=== PATIENT | male | born 1980 | race Two or more races ===

== ENCOUNTER 2022-10-05 15:41 | Emergency (ER) | payer SELFPAY ==
[2022-10-05 15:49] VITALS: BP 133/81; PULSE 103; RESP 18; TEMP 36.3; O2SAT 99; BMI 27.5
--- NOTE | 2022-10-05 15:49 | ED_ITS ---
HPI - General Adult General Chief complaint: General Medical <Neelam Caldwell CNP - Last Filed: 10/05/22 16:44> Stated complaint: High blood pressure <Neelam Caldwell CNP - Last Filed: 10/05/22 16:44> Time Seen by Provider: 10/05/22 17:13 <Neelam Caldwell CNP - Last Filed: 10/05/22 16:44> Source: patient <TODD Bragg Last Filed: 10/05/22 19:04> Mode of arrival: ambulatory <TODD Bragg Last Filed: 10/05/22 19:04> Limitations: no limitations <TODD Bragg Last Filed: 10/05/22 19:04> History of Present Illness HPI narrative: This is a 42-year-old male presenting to the emergency department requesting a medication refill on his blood pressure medication Procardia XL he takes 30 mg daily, patient tells me he recently got here from [place] he is here for a little while due to a family emergency, he tells me prior to him coming to [place] he was hospitalized with rhabdo, acute kidney injury with elevated creatinine ( reported Cr of 13 to this KAYLENE) than the expressed that it was very important that he get his blood pressure under control. He tells me he has ran out of medications. He is requesting a medication refill. He tells me he thinks that his blood pressures have been high, he tells me when he took it at home it was systolic pressure in the 170s. He denies any medical complaints at this time. He tells me he is afraid if he does not take his medications he will get dizzy and not feel well. However at this present moment patient without medical complaints denying chest pain, shortness of breath, vision changes, dizziness, headache, nausea, vomiting, abdominal pain. NIH stroke scale 0. <TODD Bragg Last Filed: 10/05/22 19:04> Related Data Home medications: Previous Rx's Medication Instructions Recorded nifedipine 30 mg tablet,extended 30 mg PO DAILY #30 tabs 10/05/22 release 24 hr (Procardia XL) <Neelam Caldwell CNP - Last Filed: 10/05/22 16:44> Allergies/adverse reactions: Allergies Allergy/AdvReac Type Severity Reaction Status Date / Time No Known Allergies Allergy Verified 10/05/22 16:00 <Neelam Caldwell CNP - Last Filed: 10/05/22 16:44> Review of Systems Review of Systems: Constitutional : No Weight loss, No Fever, No Chills, No Fatigue, No Malaise ENT/Mouth : No sore throat, No Rhinorrhea Eyes: No Eye Pain, No Swelling, No Redness Cardiovascular : No Chest Pain, No SOB, No Dyspnea on Exertion, No Orthopnea, No Edema, No Palpitations Respiratory : No Cough, No Sputum, No Wheezing Gastrointestinal : No Nausea, No Vomiting, No Diarrhea, No Constipation, No abdominal Pain, No Hematochezia, No Melena Genitourinary : No Dysuria, No Urinary Frequency, No Hematuria, Musculoskeletal : No joint pain, No Myalgias, No Joint Swelling Skin : No Skin Lesions, No rash Neuro : No Weakness, No Numbness, No Dizziness, No Headache Psych : No Anxiety/Panic, No Depression All other systems reviewed and are negative <TODD Bragg - Last File d: 10/05/22 19:04> Yes all other systems are reviewed and are negative <TODD Bragg - Last Filed: 10/05/22 19:04> [facility] Past Medical History Attestation statement: The following information was validated with the patient. <TODD Bragg - Last Filed: 10/05/22 19:04> Source: old records reviewed and nursing notes reviewed <TODD Bragg - Last Filed: 10/05/22 19:04> Social History Social History: Social History Advance Directives: No Advance Directives Information Provided: No <Neelam Caldwell CNP - Last Filed: 10/05/22 16:44> Physical Exam ED Vital Signs: Vital Signs - 24 hr 10/05/22 15:49 10/05/22 17:43 Temperature 97.4 F Pulse Rate 103 H 92 Respiratory Rate 18 18 Blood Pressure 133/81 119/80 Pulse Oximetry 99 98 Oxygen Delivery Method Room Air Room Air BMI result Body Mass Index 27.5 <Neelam Marie RHYS Caldwell - Last Filed: 10/05/22 16:44> Vital Signs - 24 hr 10/05/22 15:49 10/05/22 17:43 Temperature 97.4 F Pulse Rate 103 H 92 Respiratory Rate 18 18 Blood Pressure 133/81 119/80 Pulse Oximetry 99 98 Oxygen Delivery Method Room Air Room Air BMI result Body Mass Index 27.5 Vital signs stable <TODD Bragg - Last Filed: 10/05/22 19:04> Appearance: Alert.? Oriented X3.? No acute distress.? Head: Normocephalic, atraumatic, no step-offs or deformities Eyes: Pupils equal, round and reactive to light.? CVS: Normal heart rate and rhythm.? Pulses normal.? Respiratory: No respiratory distress.? Breath sounds normal.? Abdomen: Soft and nontender.? Skin: Skin warm and dry.? Normal skin color.? Normal skin turgor.? Extremities: No lower extremity edema.? No calf ttp. 5/5 strength to bilateral upper and lower extremities Back: No midline tenderness, no C-spine tenderness, full range of motion, no CVA tenderness bilaterally Neuro: Oriented X 3.? No motor deficit.? No sensory deficit. CN 2-12 intact . Ambulating with steady gait normal coordination. Normal rapid alternating movements. Normal [id number], [id number]. <TODD Bragg - Last Filed: 10/05/22 19:04> Course Course Course Narrative: This is an RME: Additional HPI, ROS, PE not included below will be deferred to primary provider. 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 Today was 154/138 with automated wrist cuff. Reports that he checks it daily, usually 130-140's SBP, confirms 138 DBP, has experiencing d izziness at this time. Reports today he ran out of his HTN medication, nifedipine XL 30 mg, states he has a problem with my kidney , reporting a story concerning for rhabdo, with last known creatinine 8, no further follow-up. Moved here from [place] 3 weeks ago, does not have a PCP here. Denies chest pain, shortness of breath, n/v, and pain, inability to urinate, abnormal colored urine. Plan: Labs, urinalysis, EKG <Neelam Caldwell CNP - Last Filed: 10/05/22 16:44> Reevaluation(s) Reevaluation #1: CBC with slight leukocytosis 12.9 patient without medical complaints, no baseline to compare with however infection is not suspected at this time. Chemistry with no acute findings requiring intervention. Normal BUN and creatinine. Slightly elevated transaminases and alk-phos however no abdominal tenderness on palpation. Troponin negative, EKG nonischemic unlikely that this is ACS. Urine negative. Again patient reassures me that he is not having any medical complaints, no chest pain, shortness of breath, dizziness, headache or vision changes. Patient's neuro remains nonfocal. At this time patient will be discharged home with prompt follow-up with his primary care provider, advised for him to continue checking his blood pressures, write them down and share them with this PCP. He verbalizes understanding of this. Educated patient on diagnosis and treatment plan, answered all question, patient verbalizes understanding. At this time patient will be discharged home, advised to return with new or worsening symptoms. Educated on worrisome signs and symptoms and when to return. At this time I feel comfortable discharge home. <TODD Bragg - Last Filed: 10/05/22 19:04> Medical Decision Making Medical Decision Making [facility] Narrative: [id number] This is a 42-year-old male presenting for medication refill, patient here from [place] and has not been able to fill his blood pressure medication he has been taking his pressures at home and he tells me they have been elevated systolic pressure up to 170. To note, I did review triage note that states that patient's blood pressure was 154/138, I did clarify with patient and he tells me this is incorrect, I think there is a language barrier. He tells me that he is also not feeling does knee however he is afraid that if his blood pressure gets high he will become dizzy. Physical examination benign Likely normal physical exam. I do not suspect stroke, posterior stroke, electrolyte abnormalities, hypertensive urgency or emergency, infection. Plan at this time basic labs, urine, EKG. All of which were ordered from triage. <TODD Bragg - Last Filed: 10/05/22 19:04> Differential Diagnosis Differential Diagnoses: The differential diagnosis associated with the presentation includes <TODD Bragg - Last Filed: 10/05/22 19:04> Likely normal physical exam. I do not suspect stroke, posterior stroke, electrolyte abnormalities, hypertensive urgency or emergency, infection. <TODD Bragg - Last Filed: 10/05/22 19:04> Admission/Observation Consideration of admission/observation: Escalation of care including admission/observation considered <TODD Bragg - Last Filed: 10/05/22 19:04> Lab Data MDM Lab Attestation statement: I reviewed the patient's lab results. <TODD Bragg - Last Filed: 10/05/22 19:04> Result Diagrams: 10/05/22 16:43 10/05/22 16:43 <Neelam Caldwell CNP - Last Filed: 10/05/22 16:44> Labs: Lab Results 10/05/22 10/05/22 10/05/22 Range/Units 16:43 16:43 16:43 WBC 12.9 H (4.8-10.8) X10*3/uL RBC 6.10 H (4.60-5.80) X10*6/uL Hgb 15.8 (14.0-18.0) g/dl Hct 50.0 (42.0-52.0) % MCV 82.0 (80.0-98.0) fL MCH 25.9 L (27.0-33.0) pg MCHC 31.6 (31.0-36.0) g/dl RDW 13.0 (11.0-16.0) % Plt Count 307 (160-400) X10*3/uL MPV 10.6 (9.4-12.4) fL Immature Gran % (Auto) Cancelled Neut % (Auto) Cancelled Lymph % (Auto) Cancelled Gonzales % (Auto) Cancelled Eos % (Auto) Cancelled Baso % (Auto) Cancelled Lymph # (Auto) Cancelled Gonzales # (Auto) Cancelled Eos # (Auto) Cancelled Baso # (Auto) Cancelled Abs Immat Gran (auto) Cancelled Absolute Neuts (auto) Cancelled Absolute Nucleated RBC 0.000 (0.0-0.012) X10*3/uL Nucleated RBC % (auto) 0.0 (0.0-0.2) /100WBC Neutrophils % (Manual) 34 L (45-73) % Band Neutrophils % 0 L (3-5) % Lymphocytes % (Manual) 34 (20-40) % Atypical Lymphs % (Man) 24 H (0-6) % Monocytes % (Manual) 6 (2-11) % Eosinophils % (Manual) 2 (0-4) % Abs Neuts (Manual) 4.4 (2.0-8.3) X10*3/uL Lymphocytes # (Manual) 4.4 (1.2-4.9) X10*3/uL Atyp Lymphs # (Manual) 3.1 x10*3/uL Monocytes # (Manual) 0.8 (0.1-1.2) X10*3/uL Eosinophils # (Manual) 0.3 (0.0-0.4) X10*3/uL Smudge Cells PRESENT Platelet Estimate NORMAL (NORMAL) Plt Morphology Comment NORMAL RBC Morphology NOTED [place] Cells 2+ (3-5) /OIF Sodium 140 (135-145) mmol/L Potassium 4.6 (3.3-5.1) mmol/L Chloride 102 (96-108) mmol/L Carbon Dioxide 29 (22-29) mmol/L Anion Gap 14 (12-20) BUN 15 (9-16) mg/dL Creatinine 0.86 (0.5-1.4) mg/dL Estim Creat Clear Calc 114.4 Estimated GFR > 60 Random Glucose 90 (60-115) mg/dL Calcium 9.6 (8.4-10.2) mg/dL Total Bilirubin 0.2 (0.0-1.0) mg/dL AST 45 H (5-37) U/L ALT 42 H (0-40) U/L Alkaline Phosphatase 140 H (39-117) U/L Total Creatine Kinase (38-174) U/L Troponin I High Sens < 3.5 (<3.5-35.0) ng/L Total Protein 8.0 (6.5-8.0) g/dL Albumin 4.0 (3.5-5.0) g/dL Urine Color Urine Appearance Urine pH (5.0-9.0) Ur Specific [place] (1.005-1.025) Urine Protein (Neg-Trace) mg/dL Urine Glucose (UA) (Negative) mg/dL Urine Ketones (Negative) mg/dL Urine Blood (Negative) Urine Nitrite (Negative) Ur Leukocyte Esterase (Negative) 10/05/22 10/05/22 Range/Units 16:43 16:43 WBC (4.8-10.8) X10*3/uL RBC (4.60-5.80) X10*6/uL Hgb (14.0-18.0) g/dl Hct (42.0-52.0) % MCV (80.0-98.0) fL MCH (27.0-33.0) pg MCHC (31.0-36.0) g/dl RDW (11.0-16.0) % Plt Count (160-400) X10*3/uL MPV (9.4-12.4) fL Immature Gran % (Auto) Neut % (Auto) Lymph % (Auto) Gonzales % (Auto) Eos % (Auto) Baso % (Auto) Lymph # (Auto) [place] # (Auto) Eos # (Auto) Baso # (Auto) Abs Immat Gran (auto) Absolute Neuts (auto) Absolute Nucleated RBC (0.0-0.012) X10*3/uL Nucleated RBC % (auto) (0.0-0.2) /100WBC Neutrophils % (Manual) (45-73) % Band Neutrophils % (3-5) % Lymphocytes % (Manual) (20-40) % Atypical Lymphs % (Man) (0-6) % Monocytes % (Manual) (2-11) % Eosinophils % (Manual) (0-4) % Abs Neuts (Manual) (2.0-8.3) X10*3/uL Lymphocytes # (Manual) (1.2-4.9) X10*3/uL Atyp Lymphs # (Manual) x10*3/uL Monocytes # (Manual) (0.1-1.2) X10*3/uL Eosinophils # (Manual) (0.0-0.4) X10*3/uL Smudge Cells Platelet Estimate (NORMAL) Plt Morphology Comment RBC Morphology Lisa Cells /OIF Sodium (135-145) mmol/L Potassium (3.3-5.1) mmol/L Chloride (96-108) mmol/L Carbon Dioxide (22-29) mmol/L Anion Gap (12-20) BUN (9-16) mg/dL Creatinine (0.5-1.4) mg/dL Estim Creat Clear Calc Estimated GFR Random Glucose (60-115) mg/dL Calcium (8.4-10.2) mg/dL Total Bilirubin (0.0-1.0) mg/dL AST (5-37) U/L ALT (0-40) U/L Alkaline Phosphatase (39-117) U/L Total Creatine Kinase 191 H (38-174) U/L Troponin I High Sens (<3.5-35.0) ng/L Total Protein (6.5-8.0) g/dL Albumin (3.5-5.0) g/dL Urine Color Yellow Urine Appearance Clear Urine pH 5.5 (5.0-9.0) Ur Specific [place] 1.015 (1.005-1.025) Urine Protein Negative (Neg-Trace) mg/dL Urine Glucose (UA) Negative (Negative) mg/dL Urine Ketones Negative (Negative) mg/dL Urine Blood Negative (Negative) Urine Nitrite Negative (Negative) Ur Leukocyte Esterase Negative (Negative) <Neelam Caldwell, RHYS - Last Filed: 10/05/22 16:44> Lab Results 10/05/22 10/05/22 10/05/22 Range/Units 16:43 16:43 16:43 WBC 12.9 H (4.8-10.8) X10*3/uL RBC 6.10 H (4.60-5.80) X10*6/uL Hgb 15.8 (14.0-18.0) g/dl Hct 50.0 (42.0-52.0) % MCV 82.0 (80.0-98.0) fL MCH 25.9 L (27.0-33.0) pg MCHC 31.6 (31.0-36.0) g/dl RDW 13.0 (11.0-16.0) % Plt Count 307 (160-400) X10*3/uL MPV 10.6 (9.4-12.4) fL Immature Gran % (Auto) Cancelled Neut % (Auto) Cancelled Lymph % (Auto) Cancelled Gonzales % (Auto) Cancelled Eos % (Auto) Cancelled Baso % (Auto) Cancelled Lymph # (Auto) Cancelled [place] # (Auto) Cancelled Eos # (Auto) Cancelled Baso # (Auto) Cancelled Abs Immat Gran (auto) Cancelled Absolute Neuts (auto) Cancelled Absolute Nucleated RBC 0.000 (0.0-0.012) X10*3/uL Nucleated RBC % (auto) 0.0 (0.0-0.2) /100WBC Neutrophils % (Manual) 34 L (45-73) % Band Neutrophils % 0 L (3-5) % Lymphocytes % (Manual) 34 (20-40) % Atypical Lymphs % (Man) 24 H (0-6) % Monocytes % (Manual) 6 (2-11) % Eosinophils % (Manual) 2 (0-4) % Abs Neuts (Manual) 4.4 (2.0-8.3) X10*3/uL Lymphocytes # (Manual) 4.4 (1.2-4.9) X10*3/uL Atyp Lymphs # (Manual) 3.1 x10*3/uL Monocytes # (Manual) 0.8 (0.1-1.2) X10*3/uL Eosinophils # (Manual) 0.3 (0.0-0.4) X10*3/uL Smudge Cells PRESENT Platelet Estimate NORMAL (NORMAL) Plt Morphology Comment NORMAL RBC Morphology NOTED [place] Cells 2+ (3-5) /OIF Sodium 140 (135-145) mmol/L Potassium 4.6 (3.3-5.1) mmol/L Chloride 102 (96-108) mmol/L Carbon Dioxide 29 (22-29) mmol/L Anion Gap 14 (12-20) BUN 15 (9-16) mg/dL Creatinine 0.86 (0.5-1.4) mg/dL Estim Creat Clear Calc 114.4 Estimated GFR > 60 Random Glucose 90 (60-115) mg/dL Calcium 9.6 (8.4-10.2) mg/dL Total Bilirubin 0.2 (0.0-1.0) mg/dL AST 45 H (5-37) U/L ALT 42 H (0-40) U/L Alkaline Phosphatase 140 H (39-117) U/L Total Creatine Kinase (38-174) U/L Troponin I High Sens < 3.5 (<3.5-35.0) ng/L Total Protein 8.0 (6.5-8.0) g/dL Albumin 4.0 (3.5-5.0) g/dL Urine Color Urine Appearance Urine pH (5.0-9.0) Ur Specific [place] (1.005-1.025) Urine Protein (Neg-Trace) mg/dL Urine Glucose (UA) (Negative) mg/dL Urine Ketones (Negative) mg/dL Urine Blood (Negative) Urine Nitrite (Negative) Ur Leukocyte Esterase (Negative) 10/05/22 10/05/22 Range/Units 16:43 16:43 WBC (4.8-10.8) X10*3/uL RBC (4.60-5.80) X10*6/uL Hgb (14.0-18.0) g/dl Hct (42.0-52.0) % MCV (80.0-98.0) fL MCH (27.0-33.0) pg MCHC (31.0-36.0) g/dl RDW (11.0-16.0) % Plt Count (160-400) X10*3/uL MPV (9.4-12.4) fL Immature Gran % (Auto) Neut % (Auto) Lymph % (Auto) Gonzales % (Auto) Eos % (Auto) Baso % (Auto) Lymph # (Auto) Gonzales # (Auto) Eos # (Auto) Baso # (Auto) Abs Immat Gran (auto) Absolute Neuts (auto) Absolute Nucleated RBC (0.0-0.012) X10*3/uL Nucleated RBC % (auto) (0.0-0.2) /100WBC Neutrophils % (Manual) (45-73) % Band Neutrophils % (3-5) % Lymphocytes % (Manual) (20-40) % Atypical Lymphs % (Man) (0-6) % Monocytes % (Manual) (2-11) % Eosinophils % (Manual) (0-4) % Abs Neuts (Manual) (2.0-8.3) X10*3/uL Lymphocytes # (Manual) (1.2-4.9) X10*3/uL Atyp Lymphs # (Manual) x10*3/uL Monocytes # (Manual) (0.1-1.2) X10*3/uL Eosinophils # (Manual) (0.0-0.4) X10*3/uL Smudge Cells Platelet Estimate (NORMAL) Plt Morphology Comment RBC Morphology Lisa Cells /OIF Sodium (135-145) mmol/L Potassium (3.3-5.1) mmol/L Chloride (96-108) mmol/L Carbon Dioxide (22-29) mmol/L Anion Gap (12-20) BUN (9-16) mg/dL Creatinine (0.5-1.4) mg/dL Estim Creat Clear Calc Estimated GFR Random Glucose (60-115) mg/dL Calcium (8.4-10.2) mg/dL Total Bilirubin (0.0-1.0) mg/dL AST (5-37) U/L ALT (0-40) U/L Alkaline Phosphatase (39-117) U/L Total Creatine Kinase 191 H (38-174) U/L Troponin I High Sens (<3.5-35.0) ng/L Total Protein (6.5-8.0) g/dL Albumin (3.5-5.0) g/dL Urine Color Yellow Urine Appearance Clear Urine pH 5.5 (5.0-9.0) Ur Specific [place] 1.015 (1.005-1.025) Urine Protein Negative (Neg-Trace) mg/dL Urine Glucose (UA) Negative (Negative) mg/dL Urine Ketones Negative (Negative) mg/dL Urine Blood Negative (Negative) Urine Nitrite Negative (Negative) Ur Leukocyte Esterase Negative (Negative) <TODD Bragg - Last Filed: 10/05/22 19:04> Independent Interpretation I performed an independent interpretation of an: EKG (Ventricular rate of 92, ND normal, QRS normal, QT/QTC normal. EKG with normal sinus rhythm no ST elevations or inversions concerning for ischemia. No previous to compare with) <TODD Bragg - Last Filed: 10/05/22 19:04> Core Measures AMI core measures followed: Yes <TODD Bragg - Last Filed: 10/05/22 19:04> Measure exclusions: not indicated <TODD Bragg - Last Filed: 10/05/22 19:04> Critical Care Time Critical Care Time Critical Care Time: No <TODD Bragg - Last Filed: 10/05/22 19:04> Discharge Plan Discharge Clinical Impression: Normal physical exam, Medication refill <Neelam Caldwell CNP - Last Filed: 10/05/22 16:44> Patient Disposition: Home, Self-Care <Neelam Caldwell CNP - Last Filed: 10/05/22 16:44> Instructions: Medicine Refill (ED) <Neelam Caldwell CNP - Last Filed: 10/05/22 16:44> Additional Instructions: Take your medications as prescribed. If you were prescribed antibiotics today, it is important that you take your medication to their entirety, do not skip any doses, do not finish them early. Follow-up with your primary care provider this week. Return to the emergency department with new or worsening symptoms. Such as fevers, chills, chest pain, shortness of breath, nausea, vomiting, dizziness, headache, vision changes, lethargy In case of emergency call 911 Continue to check your blood pressure at home, I recommend checking on Tuesday, Tuesday, Tuesday, write it down, share these numbers with your primary care provider. Please take your prescribed blood pressure medications. [place] francesco medicamentos seg?n lo prescrito. Si le recetaron antibi?ticos hoy, es importante que tome henderson medicamento en henderson totalidad, no se salte ninguna dosis, no los termine antes de tiempo. Seguimiento con henderson proveedor de atenci?n primaria esta semana. Regrese al departamento de emergencias con s?ntomas nuevos o que empeoran. [place] fiebre, escalofr?os, dolor de pecho, dificultad para respirar, n?useas, v?mitos, mareos, dolor de jana, cambios en la visi?n, letargo En gina de emergencia llama al 911 Contin?e revisando henderson presi?n arterial en casa, le recomiendo revisar los lunes, mi?rcoles, viernes, an?telo, comparta estos n?meros con henderson proveedor de atenci?n primaria. [place] los medicamentos recetados para la presi?n arterial. <Neelam Caldwell CNP - Last Filed: 10/05/22 16:44> Prescriptions: New nifedipine [Procardia XL] 30 mg tablet extended release 24hr 30 mg PO DAILY Qty: 30 0RF <Neelam Caldwell CNP - Last Filed: 10/05/22 16:44> Referrals: Physician,None [Primary Care Provider] - 2 days <Neelam Caldwell CNP - Last Filed: 10/05/22 16:44> Stand Alone Forms: Work/School Release <Neelam Caldwell CNP - Last Filed: 10/05/22 16:44>
--- NOTE | 2022-10-05 16:00 | ECG_ITS ---
Test Reason : dizziness Blood Pressure : / mmHG Vent. Rate : 092 BPM Atrial Rate : 092 BPM P-R Int : 154 ms QRS Dur : 072 ms QT Int : 336 ms P-R-T Axes : 054 003 039 degrees QTc Int : 415 ms Normal sinus rhythm Normal ECG No previous ECGs available Referred By: Neelam Caldwell Electronically Signed By:DAMION JUÁREZ MD
[2022-10-05 16:54] LABS: Hemoglobin 15.8 g/dl (14.0-18.0); Mean Corpuscular HGB Conc 31.6 g/dl (31.0-36.0); Mean Corpuscular Hemoglobin 25.9 pg (27.0-33.0); Mean Platelet Volume 10.6 fL (9.4-12.4); Platelet Count 307 X10*3/uL (160-400); White Blood Count 12.9 X10*3/uL (4.8-10.8)
[2022-10-05 16:57] LABS: Appearance Urine Clear; Color Urine Yellow; Glucose Urine UA Negative (Negative); Leukocyte Esterase Urine Negative (Negative); Nitrite Urine Negative (Negative); PH 5.5 (5.0-9.0); Specific Gravity - Urine 1.015 (1.005-1.025); Urine Blood Negative (Negative); Urine Ketones Negative (Negative); Urine Protein Negative (Neg-Trace)
[2022-10-05 17:24] LABS: Alanine Aminotransferase 42 U/L (0-40); Alkaline Phosphatase 140 U/L (39-117); Anion Gap 14 (12-20); Aspartate Amino Transferase 45 U/L (5-37); Bilirubin Total 0.2 mg/dL (0.0-1.0); Blood Urea Nitrogen 15 mg/dL (9-16); Calcium 9.6 mg/dL (8.4-10.2); Carbon Dioxide 29 mmol/L (22-29); Chloride 102 mmol/L (96-108); Creatinine Clr Calc Pharmacy 114.4; Estimated Glomerular Filt Rate > 60; Glucose Random 90 mg/dL (60-115); Potassium 4.6 mmol/L (3.3-5.1); Sodium 140 mmol/L (135-145)
[2022-10-05 17:34] LABS: Troponin-I High Sensitivity < 3.5 ng/L (<3.5-35.0)
[2022-10-05 17:43] VITALS: BP 119/80; PULSE 92; RESP 18; O2SAT 98
[2022-10-05 18:00] LABS: Atypical Lymph Absolute Manual 3.1 x10*3/uL; Atypical Lymphs Percent Manual 24 % (0-6); Band Neutrophils Percent 0 % (3-5); Eosinophils Absolute Manual 0.3 X10*3/uL (0.0-0.4); Eosinophils Percent Manual 2 % (0-4); Lymphocytes Absolute Manual 4.4 X10*3/uL (1.2-4.9); Lymphocytes Percent Manual 34 % (20-40); Monocytes Absolute Manual 0.8 X10*3/uL (0.1-1.2); Monocytes Percent Manual 6 % (2-11); Neutrophils Absolute Manual 4.4 X10*3/uL (2.0-8.3); Neutrophils Percent Manual 34 % (45-73)
[2022-10-05 18:04] LABS: Platelet Estimate NORMAL (NORMAL); Platelet Morphology Comment NORMAL
[2022-10-05 18:05] LABS: Burr Cells 2+ (3-5) /OIF; RBC Morphology NOTED
[2022-10-05 18:06] LABS: Smudge Cells PRESENT
[2022-10-05 19:09] VITALS: BP 120/80; PULSE 87; RESP 16; O2SAT 99
== END 2022-10-05 19:15 | disposition home or self-care (01) ==
PROVIDERS: Nurse Practitioner Family; Student in an Organized Health Care Education/Training Program; Emergency Provider Emergency Medicine Emergency Medical Services
DX: Z76.0 Encounter for issue of repeat prescription (principal); Z79.899 Other long term (current) drug therapy
CPT/HCPCS: 36415; 80053; 81003; 82550; 84484; 85007; 85025; 85027; 93005; 99283; 99284

== ENCOUNTER 2022-10-08 04:52 | Emergency (ER) | payer SELFPAY ==
[2022-10-08 05:04] VITALS: BP 134/78; BP 147/81; PULSE 97; RESP 22; TEMP 36.8; O2SAT 100; O2SAT 97; BMI 25.8
--- NOTE | 2022-10-08 05:10 | PC.NURSE ---
report given to YAMINI Judge
[2022-10-08 05:14] LABS: Basophils Absolute Auto 0.1 X10*3/uL (0.0-0.2); Basophils Percent Auto 0.4 % (0-2); Eosinophils Percent Auto 0.1 % (0-4); Hematocrit 53.7 % (42.0-52.0); Hemoglobin 17.5 g/dl (14.0-18.0); Imm Gran Abs Auto 0.04 X10*3/uL (0.00-0.03); Imm Gran Pct Auto 0.3 % (0.0-0.4); Lymphocytes Percent Auto 22.5 % (20-40); MANUAL DIFF FLAG NO; Mean Corpuscular HGB Conc 32.6 g/dl (31.0-36.0); Mean Corpuscular Hemoglobin 25.9 pg (27.0-33.0); Mean Corpuscular Volume 79.4 fL (80.0-98.0); Mean Platelet Volume 10.5 fL (9.4-12.4); Monocytes Absolute Auto 0.2 X10*3/uL (0.1-1.2); Monocytes Percent Auto 1.8 % (2-11); Neutrophils Percent Auto 74.9 % (45-73); Platelet Count 322 X10*3/uL (160-400); Red Blood Count 6.76 X10*6/uL (4.60-5.80); Red Cell Distribution Width 12.8 % (11.0-16.0); White Blood Count 13.4 X10*3/uL (4.8-10.8)
--- NOTE | 2022-10-08 05:16 | ED.GENADULT ---
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 uses about 2 bundles a day for last 2 days used less amount feels withdrawal gently nauseated vomiting diffuse abdominal pain chills and she patient used to be on Suboxone does not have any more wants to go to detox Related Data Previous Rx's Medication Instructions Recorded nifedipine 30 mg tablet,extended 30 mg PO DAILY #30 tabs 10/05/22 release 24 hr (Procardia XL) Allergies Allergy/AdvReac Type Severity Reaction Status Date / Time No Known Allergies Allergy Verified 10/05/22 16:00 Review of Systems Review of Systems: Yes all other systems are reviewed and are negative [facility] Social History Social History Alcohol intake: never Smoked in Last 30 Days: No Use of substances other than those prescribed or required for medical reasons: Yes Substance Use Type: Heroin Substance Use Frequency: Daily Advance Directives: No Physical Exam ED Vital Signs: Vital Signs - 24 hr 10/08/22 05:04 10/08/22 06:21 Temperature 98.2 F Pulse Rate 97 114 H Respiratory Rate 22 H 18 Blood Pressure 134/78 134/84 Pulse Oximetry 97 95 Oxygen Delivery Method Room Air Room Air BMI result Body Mass Index 25.8 Appearance: Alert. Oriented X3. Anxious actively vomiting Eyes: PERRLA, No Nystagmus ENT: Pharynx normal. Oral Mucosa moist Neck: Normal inspection. Neck supple. CVS: Normal heart rate and rhythm. Pulses normal. Respiratory: No respiratory distress. Equal air entry bilateral, no wheezing/rales/rhonchi Abdomen: Soft and nontender. Bowel sounds are present, no mass palpable, no CVA tenderness Skin: Skin warm and dry. Normal skin color. Normal skin turgor. Extremities: No lower extremity edema. No calf tenderness IVDA track montalvo++ Neuro: Oriented X 3. No motor deficit. No sensory deficit.No cerebellar signs , cranial nerves II-XII intact Medications Administered Discontinued Medications Generic Name Dose Route Start Last Admin Trade Name Freq PRN Reason Stop Dose Admin Sodium Chloride 1,000 mls @ 999 mls/hr 10/08/22 05:29 10/08/22 05:45 Ns IV 10/08/22 06:29 999 mls/hr .Q1H1M ONE Administration Lorazepam 1 mg 10/08/22 05:29 10/08/22 05:37 Lorazepam 2 Mg/Ml Vial IVPUSH 10/08/22 05:30 1 mg ONCE ONE Administration Ondansetron HCl 4 mg 10/08/22 05:30 10/08/22 05:37 Ondansetron Hcl 4 Mg/2 Ml Vial IVPUSH 10/08/22 05:31 4 mg ONCE ONE Administration Medical Decision Making Medical Decision Making MDM Narrative: Patient with opiate withdrawal will give supportive treatment IV fluids Ativan patient had heroin bag less than 12 hours ago we will not give Suboxone. Will consult detox for placement as patient wishes to go to detox Lab Data [facility] [place] Lab Attestation statement: I reviewed the patient's lab results. 10/08/22 05:09 10/08/22 05:09 Labs: Lab Results 10/08/22 10/08/22 10/08/22 Range/Units 05:09 05:09 05:46 WBC 13.4 H (4.8-10.8) X10*3/uL RBC 6.76 H (4.60-5.80) X10*6/uL Hgb 17.5 (14.0-18.0) g/dl Hct 53.7 H (42.0-52.0) % MCV 79.4 L (80.0-98.0) fL MCH 25.9 L (27.0-33.0) pg MCHC 32.6 (31.0-36.0) g/dl RDW 12.8 (11.0-16.0) % Plt Count 322 (160-400) X10*3/uL MPV 10.5 (9.4-12.4) fL Immature Gran % (Auto) 0.3 (0.0-0.4) % Neut % (Auto) 74.9 H (45-73) % Lymph % (Auto) 22.5 (20-40) % [place] % (Auto) 1.8 L (2-11) % Eos % (Auto) 0.1 (0-4) % Baso % (Auto) 0.4 (0-2) % Lymph # (Auto) 3.0 (1.2-4.9) X10*3/uL [place] # (Auto) 0.2 (0.1-1.2) X10*3/uL Eos # (Auto) 0.0 (0.0-0.4) X10*3/uL Baso # (Auto) 0.1 (0.0-0.2) X10*3/uL Abs Immat Gran (auto) 0.04 H (0.00-0.03) X10*3/uL Absolute Neuts (auto) 10.0 H (2.0-8.3) x10*3/uL Absolute Nucleated RBC 0.000 (0.0-0.012) X10*3/uL Nucleated RBC % (auto) 0.0 (0.0-0.2) /100WBC Sodium 140 (135-145) mmol/L Potassium 4.6 (3.3-5.1) mmol/L Chloride 104 (96-108) mmol/L Carbon Dioxide 23 (22-29) mmol/L Anion Gap 18 (12-20) BUN 16 (9-16) mg/dL Creatinine 0.95 (0.5-1.4) mg/dL Estim Creat Clear Calc 102.3 Estimated GFR > 60 Random Glucose 136 H (60-115) mg/dL Calcium 10.1 (8.4-10.2) mg/dL Total Bilirubin 0.4 (0.0-1.0) mg/dL AST 43 H (5-37) U/L ALT 48 H (0-40) U/L Alkaline Phosphatase 142 H (39-117) U/L Total Protein 8.7 H (6.5-8.0) g/dL Albumin 4.2 (3.5-5.0) g/dL COVID-19 (GAURAV) Negative (Negative) COVID-19 Clin Com See Note Discharge Plan Discharge Clinical Impression: Opiate withdrawal Patient Disposition: Still a Patient Prescriptions: No Action nifedipine [Procardia XL] 30 mg tablet extended release 24hr 30 mg PO DAILY Qty: 30 0RF
--- NOTE | 2022-10-08 05:31 | PC.NURSE ---
PT reports N/V with 10/10 all over ABD pain. Reports last used IV heroine yesterday. PT sweating, and spitting into vomit bag. IV placed and meds given as documented.
[2022-10-08] MEDS: LORazepam 2 MG/ML VIAL 1 MG IVPUSH (05:37)
[2022-10-08] MEDS: ondansetron HCL 4 MG/2 ML VIAL IVPUSH (05:37)
[2022-10-08] MEDS: 0.9 % Sodium Chloride 1,000 ML 999 ML IV (05:45)
[2022-10-08 05:53] LABS: Alanine Aminotransferase 48 U/L (0-40); Albumin Level 4.2 g/dL (3.5-5.0); Alkaline Phosphatase 142 U/L (39-117); Anion Gap 18 (12-20); Aspartate Amino Transferase 43 U/L (5-37); Bilirubin Total 0.4 mg/dL (0.0-1.0); Blood Urea Nitrogen 16 mg/dL (9-16); Calcium 10.1 mg/dL (8.4-10.2); Carbon Dioxide 23 mmol/L (22-29); Chloride 104 mmol/L (96-108); Creatinine Clr Calc Pharmacy 102.3; Estimated Glomerular Filt Rate > 60; Glucose Random 136 mg/dL (60-115); Potassium 4.6 mmol/L (3.3-5.1); Sodium 140 mmol/L (135-145); Total Protein 8.7 g/dL (6.5-8.0)
[2022-10-08 06:04] LABS: IDNOW Serial# 6674DD1D
[2022-10-08 06:05] LABS: COVID-19 Test Negative (Negative)
[2022-10-08 06:21] VITALS: BP 134/84; PULSE 114; RESP 18; O2SAT 95
[2022-10-08 09:17] LABS: Appearance Urine Clear; Color Urine Yellow; Glucose Urine UA Negative (Negative); Leukocyte Esterase Urine Negative (Negative); Nitrite Urine Negative (Negative); PH 7.5 (5.0-9.0); Urine Blood Negative (Negative); Urine Ketones 40 mg/dL (Negative); Urine Protein Negative (Neg-Trace)
[2022-10-08 09:30] LABS: Amphetamine Screen Urine Not Detected (Not Detect); Barbiturates, Urine Not Detected (Not Detect); Benzodiazepines Screen Urine Not Detected (Not Detect); Cannabinoid Screen Urine Not Detected (Not Detect); Cocaine Screen Urine POSITIVE (Not Detect); Fentanyl, urine POSITIVE (Not Detect); Opiate Screen Urine POSITIVE (Not Detect); Phencyclidine Screen Urine Not Detected (Not Detect)
--- NOTE | 2022-10-08 10:20 | MHC.RECOVRN ---
Met with pt in ED11, along with certified court interpreter, to discuss substance use and desire for treatment. Pt declines ATS at this time, would like to restart Suboxone. Yamel Romero APRN, met with pt. Pt to be sent prescription to [facility] pharmacy and to follow up with [facility] on Tuesday. All information provided to patient.
[2022-10-08] MEDS: Naloxone HCl Nasal TAKE HOME 4 MG SPRAY NOSTRILALT (12:00)
[2022-10-08 12:14] VITALS: BP 109/66; PULSE 88; RESP 18; O2SAT 98
== END 2022-10-08 12:33 | disposition home or self-care (01) ==
PROVIDERS: Emergency Provider Internal Medicine
DX: F11.13 Opioid abuse with withdrawal (principal); Z20.828 Contact with and (suspected) exposure to other viral communicable diseases; Z20.822 Contact with and (suspected) exposure to COVID-19; Z79.899 Other long term (current) drug therapy
CPT/HCPCS: 36415; 80053; 80307; 81003; 85025; 87635; 96361; 96374; 96375; 99284; J2060; J2405